=== PATIENT | female | born 1960 | race Caucasian/White ===

== ENCOUNTER → 2021-10-30 | Day surgery (SDC) | payer OTHER ==
[~2021-10-30] VITALS: Ht 160 cm; Wt 88.5 kg
[~2021-10-30] MED LIST: COZAAR100 MG PO; CYCLOBENZAPRINE10 MG PO; CYMBALTA60 MG PO; DRIZALMA SPRINK60 MG PO; PROTONIX 40MG T40 MG PO; ROBAXIN500 MG PO; TRAMADOL HCL50 MG PO; VITAMIN B-121000 MC1 PO; ZOCOR40 MG PO
== END | disposition home or self-care (01) ==
LOC: FAS 06:47
DX: K22.2 Esophageal obstruction (principal); K31.7 Polyp of stomach and duodenum; K44.9 Diaphragmatic hernia without obstruction or gangrene; K21.9 Gastro-esophageal reflux disease without esophagitis; I10 Essential (primary) hypertension; E78.00 Pure hypercholesterolemia, unspecified; Z88.8 Allergy status to other drugs, medicaments and biological substances; Z98.51 Tubal ligation status
CPT/HCPCS: J2250; J2704; J7120

== ENCOUNTER 2021-12-18 09:54 | Day surgery (SDC) | payer OTHER ==
[~2021-12-18] VITALS: Ht 160 cm; Wt 90.0 kg
[2021-12-18] MEDS ORDERED: TEMAZEPAM PO (10:36)
[2021-12-19 06:29] LABS: BASOPHIL 0.1 % (0-2); EOSINOPHIL 0 % (0-5); HCT 36.4 % (37.0-47.0); HGB 12.1 g/dl (12.5-16.0); LYMPHOCYTE 7.2 % (15-48); MCH 30.3 pg (25.0-31.0); MCHC 33.2 g/dL (32.0-36.0); MONOCYTE 6.9 % (0-12); MPV 9.2 fL (6.0-9.5); NEUTROPHIL 85.4 % (41-80); NRBC 0; PLT 282 K/uL (150-400); RDW 13.2 % (11.5-14.0); WBC 16.2 K/uL (4.0-10.5)
[2021-12-19 06:53] LABS: BUN/CREAT RATIO (CALC) 18.7 RATIO; CREATININE 0.75 mg/dL (0.51-0.95); POTASSIUM 4.3 mmol/L (3.5-5.1)
[2021-12-19] MEDS ORDERED: FEOSOL325 MG PO (08:51)
[2021-12-19] MEDS ORDERED: XARELTO10 MG PO (08:51)
[2021-12-19] MEDS ORDERED: OXYCODONE-ACET1 EAC1 PO (08:51)
[2021-12-19] MEDS ORDERED: ONDANSETRON HCL4 MG PO (09:03)
== END 2021-12-19 11:20 | disposition home or self-care (01) ==
LOC: FMS 09:54 → FAS 09:54 → FMS 14:38 → FAS 12-19 11:20
PROVIDERS: Legal Medicine
DX: M17.12 Unilateral primary osteoarthritis, left knee (principal); M21.162 Varus deformity, not elsewhere classified, left knee; G89.18 Other acute postprocedural pain; I10 Essential (primary) hypertension; E78.5 Hyperlipidemia, unspecified; K21.9 Gastro-esophageal reflux disease without esophagitis; E78.00 Pure hypercholesterolemia, unspecified; Z79.899 Other long term (current) drug therapy
CPT/HCPCS: 36415; 73560; 80048; 85025; 86850; 86900; 86901; 94010; 94762; 97161; 97166; 97530-GP; C1713; C1776; J0171; J0697; J1100; J1170; J1885; J2250; J2270; J2405; J2704; J2795; J3010; J7120